=== PATIENT | male | born 1950 | race Caucasian/White ===

== ENCOUNTER 2017-05-10 22:40 | Emergency (ER) | payer BC, MEDICARE ==
[~2017-05-10] VITALS: Ht 180.3 cm; Wt 115.0 kg
[~2017-05-10 22:40] MED LIST: ATOR80TA PO; CLOP75 PO; ECASA PO; ISOS30 PO; METO50TA PO; RAMI2.5C29 PO
[2017-05-10 22:46] VITALS: BP 153/70; PULSE 86; RESP 16; TEMP 99.1; O2SAT 98
[2017-05-10] MEDS ORDERED: diphenhydrAMINE HCL 25 MG CAP PO ONE (23:00)
[2017-05-10] MEDS ORDERED: DEXAMETHASONE SOD PHOS 4 MG/ML VIAL IM ONE (23:00)
[2017-05-10] MEDS ORDERED: ZYRTEC PO (23:04)
[2017-05-10] MEDS ORDERED: PRED20 PO (23:04)
[2017-05-10] MEDS ORDERED: ZANT300T PO (23:04)
--- NOTE | 2017-05-10 23:04 | PD ---
HPI Chief Complaint: Skin Problem Time Seen by Provider: 22:52 Travel History International Travel<30 days: No Contact w/Intl Traveler<30days: No Traveled to known affect area: No History of Present Illness HPI 66-year-old male complains of itching rash on both arms. Patient states that he started having itching rash this evening. Patient ate and drank food and sodas this evening. Patient's not sure of exposure. Patient denies any problem with swallowing. Patient denies any chest pain or shortness of breath. PFSH Past Medical History Blood Disorders: No Anxiety: No Depression: No Heart Rhythm Problems: No Cancer: No Cardiac Catheterization: Yes Cardiovascular Problems: Yes High Cholesterol: Yes Chest Pain: Yes Cerebrovascular Accident: Yes (IN 1996, & 2012) Coronary Artery Disease: Yes Diabetes: No Diminished Hearing: No Endocrine: No GERD: Yes Genitourinary: No Hepatitis: No Hypertension: Yes Immune Disorder: No Implanted Vascular Access Dvce: No Musculoskeletal: Yes (RIGHT ARM SURGERY) Neurologic: Yes Psychiatric: No Reproductive: No Respiratory: No Thyroid Disease: No Tetanus Vaccination: < 5 Years Past Surgical History AICD: No Appendectomy: Yes Arteriovenous Shunt: No Body Medical Devices: states all shrapnel taken out of his body Cardiac Surgery: Yes (4 CARDIAC STENTS) Coronary Stent: Yes ([place] 2 [place] [facility] [place] [facility]) Eye Surgery: Yes (GROWTH REMOVED OVER RT EYE BY DERMATOLOGY) Insulin Pump: No Joint Replacement: No Pacemaker: No Other Surgery: Yes (BACK SURGERY , CARPAL [place] RELEASE, AND RIGHT SHOULDER SURGERY) Social History Alcohol Use: No Tobacco Use: No Substance Use: Yes (MARIJUANA, 12/25/13) Allergies-Medications (Allergen,Severity, Reaction): Coded Allergies: Influenza Virus Vaccines (Unverified Allergy, Severe, Hives, 05/10/17) PT ALSO STATES ALL HIS MUSCLES TIGHTENED UP acetaminophen (Unverified Allergy, Severe, ELEVATES LIVER ENZYMES, 05/10/17) Reported Meds & Prescriptions Reported Meds & Active Scripts Active Review of Systems General / Constitutional: No: Fever Eyes: No: Visual changes HENT: No: Headaches Cardiovascular: No: Chest Pain or Discomfort Respiratory: No: Shortness of Breath Gastrointestinal: No: Abdominal Pain Genitourinary: No: Dysuria Musculoskeletal: No: Pain Skin: Positive Rash, Positive Itching Neurologic: No: Weakness Psychiatric: No: Depression Endocrine: No: Polydipsia Hematologic/Lymphatic: No: Easy Bruising Physical Exam Narrative GENERAL: Well-nourished, well-developed patient. SKIN: Focused skin assessment warm/dry. HEAD: Normocephalic. EYES: No scleral icterus. No injection or drainage. NECK: Supple, trachea midline. No JVD or lymphadenopathy. CARDIOVASCULAR: Regular rate and rhythm without murmurs, gallops, or rubs. RESPIRATORY: Breath sounds equal bilaterally. No accessory muscle use. GASTROINTESTINAL: Abdomen soft, non-tender, nondistended. MUSCULOSKELETAL: No cyanosis, or edema. BACK: Nontender without obvious deformity. No CVA tenderness. Patient has hives over bilateral upper extremity. No pharyngeal edema. No stridor or wheezes. Data Data Last Documented VS Vital Signs Date Time Temp Pulse Resp B/P (MAP) Pulse Ox O2 Delivery O2 Flow Rate FiO2 05/10/17 22:46 99.1 86 16 153/70 (97) 98 Room Air Orders Orders Dexamethasone Inj (Decadron Inj) (05/10/17 23:00) Diphenhydramine (Benadryl) (05/10/17 23:00) MDM Medical Decision Making Medical Screen Exam Complete: Yes Emergency Medical Condition: Yes Differential Diagnosis Differential diagnosis including allergic reaction, contact dermatitis. Narrative Course 66-year-old male with itching rash bilateral arms. Benadryl 25 Mg by mouth. Decadron 8 mg IM. Diagnosis Primary Impression: Allergic reaction Qualified Codes: T78.40XA - Allergy, unspecified, initial encounter Patient Instructions: General Instructions Additional Instructions: Take medications as directed. Follow-up with personal physician. Return if worse. Return immediately if any chest pain shortness of breath. Med/Other Pt SpecificInfo: Prescription(s) given Scripts Ranitidine (Zantac) 300 Mg Tab 300 MG PO DAILY, #10 TAB 0 Refills Prov: Jacques Cox MD 05/10/17 [[facility]] No Conflict Check 10 MG PO DAILY, #10 Prov: Jacques Cox MD 05/10/17 Prednisone (Prednisone) 20 Mg Tab 20 MG PO BID, #10 TAB 0 Refills Prov: Jacques Cox MD 05/10/17 Disposition: 01 DISCHARGE HOME Condition: Stable Jacques Cox MD May 10, 2017 23:04
[2017-05-10] MEDS ORDERED: METO50TA PO (23:11)
[2017-05-10] MEDS ORDERED: ATOR80TA45 PO (23:11)
[2017-05-10] MEDS ORDERED: CLOP75TA PO (23:11)
[2017-05-10] MEDS ORDERED: ASPI-516 CHEW (23:11)
[2017-05-10] MEDS ORDERED: RAMI2.5C PO (23:11)
== END 2017-05-10 23:36 | disposition home or self-care (01) ==
LOC: NEPD 22:40
DX: T78.40XA Allergy, unspecified, initial encounter (principal); L29.9 Pruritus, unspecified; R21 Rash and other nonspecific skin eruption; E78.00 Pure hypercholesterolemia, unspecified; I25.10 Atherosclerotic heart disease of native coronary artery without angina pectoris; K21.9 Gastro-esophageal reflux disease without esophagitis; I10 Essential (primary) hypertension; Z86.73 Personal history of transient ischemic attack (TIA), and cerebral infarction without residual deficits
CPT/HCPCS: 96372; 99283; J1100

== ENCOUNTER 2017-05-26 16:21 | Observation (INO) | payer MEDICARE ==
[~2017-05-26] VITALS: Ht 180.3 cm; Wt 111.0 kg
[~2017-05-26 16:21] MED LIST changes: +ASPI-516 CHEW; -ATOR80TA PO; +ATOR80TA45 PO; -CLOP75 PO; +CLOP75TA PO; -ECASA PO; -ISOS30 PO; +PRED20 PO; +RAMI2.5C PO; -RAMI2.5C29 PO; +ZANT300T PO; +ZYRTEC PO
[2017-05-26 16:22] VITALS: BP 163/92; PULSE 73; RESP 18; TEMP 98.1; O2SAT 99
--- NOTE | 2017-05-26 17:37 | RADRPT ---
EXAM DATE/TIME: 05/26/2017 16:58 [facility] COMPARISON: No previous studies available for comparison. INDICATIONS : Short of breath. MEDICAL HISTORY : None. SURGICAL HISTORY : None. ENCOUNTER: Initial ACUITY: 1 day PAIN SCORE: 0/10 LOCATION: Bilateral chest FINDINGS: PA and lateral views of the chest demonstrate the lungs to be symmetrically aerated without evidence of mass, infiltrate or effusion. No evidence of pneumothorax. The cardiomediastinal contours are un remarkable. Osseous structures are intact. CONCLUSION: The lungs are clear. Luis Ruiz MD on May 26, 2017 at 17:36 Board Certified Radiologist. This report was verified electronically.
[2017-05-26 17:55] LABS: AUTOMATED NEUTROPHIL # 6.9 TH/MM3 (1.8-7.7); BASOPHIL % 0.4 % (0.0-2.0); EOSINOPHIL # 0.1 TH/MM3 (0-0.4); EOSINOPHIL % 1.3 % (0.0-4.0); HEMATOCRIT 41.1 % (39.0-51.0); HEMOGLOBIN 14.4 GM/DL (13.0-17.0); LYMPHOCYTE # 1.9 TH/MM3 (1.0-4.8); MEAN CELL VOLUME 82.3 FL (80.0-100.0); MEAN CORPUSCULAR HEMOGLOBIN 28.8 PG (27.0-34.0); MEAN PLATELET VOLUME 7.9 FL (7.0-11.0); MONO % 6.2 % (0.0-8.0); MONOCYTE # 0.6 TH/MM3 (0-0.9); NEUT % 72.1 % (16.0-70.0); PLATELET COUNT 169 TH/MM3 (150-450); RED BLOOD COUNT 4.99 MIL/MM3 (4.50-5.90); RED CELL DISTRIBUTION WIDTH 15.2 % (11.6-17.2); WHITE BLOOD COUNT 9.6 TH/MM3 (4.0-11.0)
[2017-05-26 18:17] LABS: PROTHROMBIN TIME - PATIENT 10.6 SEC (9.8-11.6)
[2017-05-26 18:25] LABS: BLOOD UREA NITROGEN 19 MG/DL (7-18); CALCIUM 9.1 MG/DL (8.5-10.1); CHLORIDE 106 MEQ/L (98-107); CREATININE 1.32 MG/DL (0.60-1.30); GLOMERULAR FILTRATION RATE 54 ML/MIN (>89); GLUCOSE,RANDOM 101 MG/DL (74-106); SODIUM (NA) 139 MEQ/L (136-145)
[2017-05-26 18:28] LABS: TROPONIN I LESS THAN 0.02 NG/ML (0.02-0.05)
[2017-05-26] MEDS ORDERED: SODIUM CHLORIDE 0.9% FLUSH 10 ML FLUSH IVF PRN (20:30)
[2017-05-26] MEDS ORDERED: NITROGLYCERIN 0.4 MG SL 25 TABS/BTL SL ONE (20:30)
[2017-05-26] MEDS ORDERED: SODIUM CHLORID 0.9% 500 ML INJ 500 ML IV ONE (20:30)
--- NOTE | 2017-05-26 20:35 | PD ---
HPI Chief Complaint: Chest Pain Time Seen by Provider: 20:10 Travel History International Travel<30 days: No Contact w/Intl Traveler<30days: No Traveled to known affect area: No History of Present Illness HPI 66-year-old male with a history of cardiac stents (), CVA(1996), diabetes mellitus presents emergency department complaining of chest pain since approximately 1 PM today. States that [place] the [place]. Patient describes it as tight and pressure. About 330p, his pain increased and the pressure spread across his chest. States that the pressure felt like somebody was sitting on him. No palliative or provocative factors. Initially, pain was 9/10 and is decreased to 1/10 with 1 SL nitro. States he had associated shortness of breath. Patient did take an aspirin this morning. Patient states that his chest pain may be from stress as his fianc did pass 3 months ago[address] Patient follows Dr. Juarez for cardiology with last follow up in . States he has an echo 2015 or . He does not know the results of this. PFSH Past Medical History Blood Disorders: No Anxiety: No Depression: No Heart Rhythm Problems: No Cancer: No Cardiac Catheterization: Yes Cardiovascular Problems: Yes High Cholesterol: Yes Chest Pain: Yes Cerebrovascular Accident: Yes (IN 1996, & 2012) Coronary Artery Disease: Yes Diabetes: No Diminished Hearing: No Endocrine: No GERD: Yes Genitourinary: No Hepatitis: No Hypertension: Yes Immune Disorder: No Implanted Vascular Access Dvce: No Musculoskeletal: Yes (RIGHT ARM SURGERY) Neurologic: Yes Psychiatric: No Reproductive: No Respiratory: No Thyroid Disease: No Past Surgical History AICD: No Appendectomy: Yes Arteriovenous Shunt: No Body Medical Devices: states all shrapnel taken out of his body Cardiac Surgery: Yes (4 CARDIAC STENTS) [place]: [place] [facility] [place] [facility]) Eye Surgery: Yes (GROWTH REMOVED OVER RT EYE BY DERMATOLOGY) Insulin Pump: No Joint Replacement: No Pacemaker: No Other Surgery: Yes (BACK SURGERY , CARPAL [place] RELEASE, AND RIGHT SHOULDER SURGERY) Social History Alcohol Use: No Tobacco Use: No Substance Use: Yes (MARIJUANA, 12/25/13) Allergies-Medications (Allergen,Severity, Reaction): Coded Allergies: Influenza Virus Vaccines (Unverified Allergy, Severe, Hives, 05/10/17) PT ALSO STATES ALL HIS MUSCLES TIGHTENED UP acetaminophen (Unverified Allergy, Severe, ELEVATES LIVER ENZYMES, 05/10/17) Reported Meds & Prescriptions Reported Meds & Active Scripts Active Reported Clopidogrel (Clopidogrel Bisulfate) 75 Mg Tab 75 Mg PO DAILY Ramipril 2.5 Mg Cap 2.5 Mg PO DAILY Metoprolol Tartrate 50 Mg Tab 50 Mg PO BID Atorvastatin (Atorvastatin Calcium) 80 Mg Tab 80 Mg PO HS Aspirin 81 Mg Chew 81 Mg CHEW DAILY Review of Systems Except as stated in HPI: all other systems reviewed are Neg Physical Exam Narrative GENERAL: Well-developed, well-nourished in no apparent distress SKIN: Focused skin assessment warm/dry. HEAD: Atraumatic. Normocephalic. EYES: Pupils equal and round. No scleral icterus. No injection or drainage. ENT: No nasal bleeding or discharge. Mucous membranes pink and moist. NECK: Trachea midline. No JVD. No lymphadenopathy CARDIOVASCULAR: Regular rate and rhythm. No murmur appreciated. RESPIRATORY: No accessory muscle use. Clear to auscultation. Breath sounds equal bilaterally. GASTROINTESTINAL: Abdomen soft, non-tender, nondistended. Hepatic and splenic margins not palpable. MUSCULOSKELETAL: No obvious deformities. No clubbing. No cyanosis. No edema. NEUROLOGICAL: Awake and alert. No obvious cranial nerve deficits. Motor grossly within normal limits. Normal speech. PSYCHIATRIC: Appropriate mood and affect; insight and judgment normal. Data Data Last Documented VS Vital Signs Date Time Temp Pulse Resp B/P (MAP) Pulse Ox O2 Delivery O2 Flow Rate FiO2 05/26/17 16:22 98.1 73 18 163/92 (115) 99 Room Air Orders Orders Electrocardiogram (05/26/17 16:36) Basic Metabolic Panel (Bmp) (05/26/17 16:36) Ckmb (Isoenzyme) Profile (05/26/17 16:36) Complete Blood Count With Diff (05/26/17 16:36) Magnesium (Mg) (05/26/17 16:36) Prothrombin Time / Inr (Pt) (05/26/17 16:36) Act Partial Throm Time (Ptt) (05/26/17 16:36) Troponin I (05/26/17 16:36) Chest, Pa & Lat (05/26/17 16:36) Sodium Chloride 0.9% Flush (Ns Flush) (05/26/17 20:30) Nitroglycerin Sl (Nitrostat Sl) (05/26/17 20:30) Sodium Chlorid 0.9% 500 Ml Inj (Ns 500 M (05/26/17 20:30) Activity Bed Rest With Brp (05/26/17 20:35) Vital Signs (Adult) Q4H (05/26/17 20:35) Cardiac Rhythm .As Directed (05/26/17 20:35) Notify Dr: Other .PRN (05/26/17 20:35) Notify DrSanjay Parameters (05/26/17 20:35) Resp Oxygen Nasal Cannula (05/26/17 ) Diet Heart Healthy (05/27/17 Breakfast) Ckmb (Isoenzyme) Profile (05/26/17 20:35) Ckmb (Isoenzyme) Profile (05/26/17 23:35) Troponin I (05/26/17 20:35) Troponin I (05/26/17 23:35) Electrocardiogram (05/26/17 20:35) Electrocardiogram (05/26/17 23:35) ^ Obtain (05/26/17 20:35) Case Management Social Worker / Telemetry [id number].[id number] (05/26/17 20:35) Diet Heart Healthy (05/26/17 Dinner) Admit Order (Ed Use Only) (05/26/17 21:00) Labs Laboratory Tests Test 05/26/17 16:53 05/26/17 20:40 White Blood Count 9.6 TH/MM3 Red Blood Count 4.99 MIL/MM3 Hemoglobin 14.4 GM/DL Hematocrit 41.1 % Mean Corpuscular Volume 82.3 FL Mean Corpuscular Hemoglobin 28.8 PG Mean Corpuscular Hemoglobin Concent 35.0 % Red Cell Distribution Width 15.2 % Platelet Count 169 TH/MM3 Mean Platelet Volume 7.9 FL Neutrophils (%) (Auto) 72.1 % Lymphocytes (%) (Auto) 20.0 % Monocytes (%) (Auto) 6.2 % Eosinophils (%) (Auto) 1.3 % Basophils (%) (Auto) 0.4 % Neutrophils # (Auto) 6.9 TH/MM3 Lymphocytes # (Auto) 1.9 TH/MM3 Monocytes # (Auto) 0.6 TH/MM3 Eosinophils # (Auto) 0.1 TH/MM3 Basophils # (Auto) 0.0 TH/MM3 CBC Comment DIFF FINAL Differential Comment Prothrombin Time 10.6 SEC Prothromb Time International Ratio 1.0 RATIO Activated Partial Thromboplast Time 24.5 SEC Blood Urea Nitrogen 19 MG/DL Creatinine 1.32 MG/DL Random Glucose 101 MG/DL Calcium Level 9.1 MG/DL Magnesium Level 2.0 MG/DL Sodium Level 139 MEQ/L Potassium Level 3.9 MEQ/L Chloride Level 106 MEQ/L Carbon Dioxide Level 28.0 MEQ/L Anion Gap 5 MEQ/L Estimat Glomerular Filtration Rate 54 ML/MIN Total Creatine Kinase 64 U/L 63 U/L Troponin I LESS THAN 0.02 NG/ML LESS THAN 0.02 NG/ML MDM Medical Decision Making Medical Screen Exam Complete: Yes Emergency Medical Condition: Yes Differential Diagnosis Unstable angina, NSTEMI, STEMI Narrative Course 66-year-old male with a history of cardiac stents (), CVA(1996), diabetes mellitus presents emergency department complaining of chest pain since approximately 1 PM today. States that [place] the pain started. Patient describes it as tight and pressure. About 330p, his pain increased and the pressure spread across his chest. States that the pressure felt like somebody was sitting on him. No palliative or provocative factors. Initially, pain was 9/10 and is decreased to 1/10 with 1 SL nitro. States he had associated shortness of breath. Patient to take an aspirin this morning. Patient states that his chest pain may be from stress as his fianc did past 3 months ago[address] Patient follows Dr. Juarez for cardiology with last follow up in . States he has an echo 2015 or 17. He does not know the results of this. Vital signs stable. Laboratory Tests Test 05/26/17 16:53 05/26/17 20:40 White Blood Count 9.6 TH/MM3 Red Blood Count 4.99 MIL/MM3 Hemoglobin 14.4 GM/DL Hematocrit 41.1 % Mean Corpuscular Volume 82.3 FL Mean Corpuscular Hemoglobin 28.8 PG Mean Corpuscular Hemoglobin Concent 35.0 % Red Cell Distribution Width 15.2 % Platelet Count 169 TH/MM3 Mean Platelet Volume 7.9 FL Neutrophils (%) (Auto) 72.1 % Lymphocytes (%) (Auto) 20.0 % Monocytes (%) (Auto) 6.2 % Eosinophils (%) (Auto) 1.3 % Basophils (%) (Auto) 0.4 % Neutrophils # (Auto) 6.9 TH/MM3 Lymphocytes # (Auto) 1.9 TH/MM3 Monocytes # (Auto) 0.6 TH/MM3 Eosinophils # (Auto) 0.1 TH/MM3 Basophils # (Auto) 0.0 TH/MM3 CBC Comment DIFF FINAL Differential Comment Prothrombin Time 10.6 SEC Prothromb Time International Ratio 1.0 RATIO Activated Partial Thromboplast Time 24.5 SEC Blood Urea Nitrogen 19 MG/DL Creatinine 1.32 MG/DL Random Glucose 101 MG/DL Calcium Level 9.1 MG/DL Magnesium Level 2.0 MG/DL Sodium Level 139 MEQ/L Potassium Level 3.9 MEQ/L Chloride Level 106 MEQ/L Carbon Dioxide Level 28.0 MEQ/L Anion Gap 5 MEQ/L Estimat Glomerular Filtration Rate 54 ML/MIN Cardiac enzymes negative. Last Impressions Chest X-Ray 05/26/17 1636 Signed Impressions: Service Date/Time: Friday, May 26, 2017 16:58 - CONCLUSION: The lungs are clear. Luis Ruiz MD He took an ASA today along with his Plavix today. Nitro 0.4mg SL administered as he continues to have 1/10 pain. Pt will be admitted to the [facility] for unstable angina. Diagnosis Primary Impression: Unstable angina Admitting Information Admitting Physician Requests: Observation Condition: Stable Mandi Fitzgerald May 26, 2017 20:35
[2017-05-26 21:39] LABS: TROPONIN I LESS THAN 0.02 NG/ML (0.02-0.05)
[2017-05-27] VITALS (7 sets, daily range): BP systolic 117–143; BP diastolic 69–78; PULSE 55–69; RESP 18–20; TEMP 97.9–98.5; O2SAT 95–98
[2017-05-27 00:51] LABS: TROPONIN I LESS THAN 0.02 NG/ML (0.02-0.05)
--- NOTE | 2017-05-27 08:01 | EKG ---
Date Performed: 05/26/2017 Time Performed: 20:00:51 PTAGE: 66 years EKG: SINUS BRADYCARDIA NONSPECIFIC T-WAVE ABNORMALITY BORDERLINE ECG PREVIOUS TRACING : 05/26/2017 16.47 DOCTOR: Tl Cuevas Interpretating Date/Time 05/27/2017 07:58:55
[2017-05-27] MEDS ORDERED: CLOPIDOGREL 75 MG TAB PO SCH (09:30)
[2017-05-27] MEDS ORDERED: RAMIPRIL 2.5 MG CAP PO SCH (09:30)
[2017-05-27] MEDS ORDERED: METOPROLOL TARTRATE 50 MG TAB PO SCH (09:30)
[2017-05-27] MEDS ORDERED: REGADENOSON INJ 0.4 MG/5 ML SYR ONE (10:17)
--- NOTE | 2017-05-27 11:30 | RADRPT ---
EXAM DATE/TIME: 05/27/2017 09:51 [facility] COMPARISON: No previous studies available for comparison. INDICATIONS : Substernal chest pain with dyspnea. Angina. DOSE: 35 mCi Tc99m Myoview at stress. 11 mCi Tc99m Myoview at rest. 0.4 mg Lexiscan STRESS SYMPTOMS: Dyspnea. EJECTION FRACTION: 59% MEDICAL HISTORY : Hypercholesterolemia. Gastroesophageal reflux disease. Diabetes mellitus type 2. Hypertension. SURGICAL HISTORY : Coronary artery stent. Appendectomy. ENCOUNTER: Initial ACUITY: 1 day PAIN SCALE: 9/10 LOCATION: Substernal chest TECHNIQUE: The patient underwent pharmacologic stress with infusion of prescribed dose. Continuous ECG tracing was monitored during stress. Gated SPECT imaging was performed after stress and conventional SPECT i maging was performed at rest. The examination was performed on a SPECT/CT scanner, both attenuation and non-corrected datasets were reviewed. FINDINGS: DISTRIBUTION: The maximum perfused segment at stress is in the septal wall. PERFUSION STUDY: The pattern of perfusion at stress is within normal limits, with regional variations in perfusion wit hin 30%. No evidence of redistribution. Summed stress score is zero.. GATED STUDY: There is intact wall motion and thickening without hypokinetic or dyskinetic segments. CONCLUSION: 1. No evidence of stress-induced ischemia. 2. Intact wall motion 59% ejection fraction. RISK CATEGORY: Low (<1% Annual Mortality Rate) Luis Ruiz MD on May 27, 2017 at 11:27 Board Certified Radiologist. This report was verified electronically.
[2017-05-27] MEDS ORDERED: METF1000 PO (11:56)
--- NOTE | 2017-05-27 11:56 | HHI.HP ---
[facility] Primary Care Physician Ghulam Koch MD Chief Complaint Chest pain History of Present Illness This is a 66-year-old male with history of CAD with history of 4 stents that presents to ED with a complaint of developing the discomfort in the center of his chest that radiated outward on both sides with shortness of breath. This began around 1:00 yesterday afternoon. By 330 was still present. He decided to go to the ED. He took an aspirin. He took a subungual nitroglycerin while waiting in the ED waiting area and states that the discomfort and resolved within 5 minutes. He had no nausea or diaphoresis. States it does not feel similar to when eating stents in the past. Follows Dr. Juarez. Cannot recall recent stress testing. Denies recent illness. Denies fevers or chills. States he has been taking his medication as prescribed. Review of Systems .General: Patient denies fevers, chills, and recent travel HEENT: Patient denies headache, sore throat, difficulty swallowing. Cardiovascular: Has the chest discomfort as mentioned above. Denies sensation of heart beating rapidly or irregularly. No syncope. Denies diaphoresis. Respiratory: He was short of breath. Denies inspirational chest discomfort. Denies coughing wheezing or hemoptysis. GI: Patient denies nausea, vomiting, diarrhea, abdominal pain, bloody stools. Musculoskeletal: Patient denies joint pain or edema. Denies calf pain or edema. Neurovascular: Patient denies numbness, tingling, weakness in extremities. Denies headache. Endocrine: Denies polyuria and polydipsia. Hematologic: Denies easy bruising. Skin: Denies rash or itching. Past Family Social History Allergies: Coded Allergies: Influenza Virus Vaccines (Unverified Allergy, Severe, Hives, 05/10/17) PT ALSO STATES ALL HIS MUSCLES TIGHTENED UP acetaminophen (Unverified Allergy, Severe, ELEVATES LIVER ENZYMES, 05/10/17) Past Medical History CAD with history of stents. Hypertension, hyperlipidemia, diabetes, prior CVA. Past Surgical History Heart catheterizations with stenting. Appendectomy, back surgery, carpal tunnel release, right shoulder. Reported Medications Reported Meds & Active Scripts Active Reported Clopidogrel (Clopidogrel Bisulfate) 75 Mg Tab 75 Mg PO DAILY Ramipril 2.5 Mg Cap 2.5 Mg PO DAILY Metoprolol Tartrate 50 Mg Tab 50 Mg PO BID Atorvastatin (Atorvastatin Calcium) 80 Mg Tab 80 Mg PO HS Aspirin 81 Mg Chew 81 Mg CHEW DAILY Active Ordered Medications Current Medications Medications (Trade) Dose Ordered Sig/Shanae Route Start Time Stop Time Status Last Admin (NS Flush) 2 ml UNSCH PRN IVF 05/26/17 20:30 (Lipitor) 80 mg HS PO 05/27/17 21:00 (Plavix) 75 mg DAILY PO 05/27/17 09:30 05/27/17 11:24 (Lopressor) 50 mg BID PO 05/27/17 09:30 05/27/17 11:24 (Altace) 2.5 mg DAILY PO 05/27/17 09:30 05/27/17 11:23 Family History There is family history of CAD. Social History Patient does not smoke, drink alcohol, or use illicit drugs. Physical Exam Vital Signs Vital Signs Date Time Temp Pulse Resp B/P (MAP) Pulse Ox O2 Delivery O2 Flow Rate FiO2 05/27/17 08:41 98.2 60 18 138/78 (98) 96 05/27/17 07:30 55 05/27/17 04:21 97.9 56 18 117/69 (85) 95 05/27/17 03:27 69 05/27/17 00:40 56 05/27/17 00:00 98.5 59 20 143/69 (93) 97 05/26/17 21:53 05/26/17 16:22 98.1 73 18 163/92 (115) 99 Room Air Physical Exam GENERAL: This is a well-nourished, well-developed patient, in no apparent distress. Patient speaks in clear complete sentences. Patient is pleasant. HEENT: Head is atraumatic and normocephalic. Neck is supple without lymphadenopathy and trachea is midline. No JVD or carotid bruits. CARDIOVASCULAR: Regular rate and rhythm without murmurs, gallops, or rubs. RESPIRATORY: Clear to auscultation. Breath sounds equal bilaterally. No wheezes , rales, or rhonchi. Chest wall is nontender. No use of accessory muscles. GASTROINTESTINAL: Abdomen is nontender, nondistended. Abdomen soft. No obvious pulsatile mass or bruit. No CVA tenderness. Strong femoral pulses bilaterally. Normal bowel sounds in all quadrants. MUSCULOSKELETAL: Patient is moving upper and lower extremities freely. No calf tenderness or edema, no Homans sign. Strong pulses in upper and lower extremities. NEUROLOGICAL: Patient is alert and oriented. Cranial nerves 2-12 are grossly intact. No focal deficits and speech is clear. SKIN: No rash and turgor is normal. Laboratory Laboratory Tests Test 05/26/17 16:53 05/26/17 20:40 05/26/17 23:50 White Blood Count 9.6 Red Blood Count 4.99 Hemoglobin 14.4 Hematocrit 41.1 Mean Corpuscular Volume 82.3 Mean Corpuscular Hemoglobin 28.8 Mean Corpuscular Hemoglobin Concent 35.0 Red Cell Distribution Width 15.2 Platelet Count 169 Mean Platelet Volume 7.9 Neutrophils (%) (Auto) 72.1 Lymphocytes (%) (Auto) 20.0 Monocytes (%) (Auto) 6.2 Eosinophils (%) (Auto) 1.3 Basophils (%) (Auto) 0.4 Neutrophils # (Auto) 6.9 Lymphocytes # (Auto) 1.9 Monocytes # (Auto) 0.6 Eosinophils # (Auto) 0.1 Basophils # (Auto) 0.0 CBC Comment DIFF FINAL Differential Comment Prothrombin Time 10.6 Prothromb Time International Ratio 1.0 Activated Partial Thromboplast Time 24.5 Blood Urea Nitrogen 19 Creatinine 1.32 Random Glucose 101 Calcium Level 9.1 Magnesium Level 2.0 Sodium Level 139 Potassium Level 3.9 Chloride Level 106 Carbon Dioxide Level 28.0 Anion Gap 5 Estimat Glomerular Filtration Rate 54 Total Creatine Kinase 64 63 57 Troponin I LESS THAN 0.02 LESS THAN 0.02 LESS THAN 0.02 Result Diagram: 05/26/17 1653 05/26/17 1653 Imaging Last 48 hours Impressions Myocardial Perfusion Scan Nuc Med 05/27/17 0000 Signed Impressions: Service Date/Time: Saturday, May 27, 2017 09:51 - CONCLUSION: 1. No evidence of stress-induced ischemia. 2. Intact wall motion 59%% ejection fraction. RISK CATEGORY: Low (<1%% Annual Mortality Rate) Luis Ruiz MD Chest X-Ray 05/26/17 1636 Signed Impressions: Service Date/Time: Friday, May 26, 2017 16:58 - CONCLUSION: The lungs are clear. Luis Ruiz MD Course EKGs have been sinus bradycardia rate 54, 55, and [address] segment depression elevations. There are nonspecific T-wave changes. Caprini VTE Risk Assessment Caprini VTE Risk Assessment: Mod/High Risk (score >= 2) Caprini Risk Assessment Model Point Value = 1 Point Value = 2 Point Value = 3 Point Value = 5 Age 41-60 Minor surgery BMI > 25 kg/m2 Swollen legs Varicose veins or History of unexplained or recurrent spontaneous Oral contraceptives or hormone replacement Sepsis (< 1 month) Serious lung disease, including pneumonia (< 1 month) Abnormal pulmonary function Acute myocardial infarction Congestive heart failure (< 1 month) History of inflammatory bowel disease Medical patient at bed rest Age 61-74 Arthroscopic surgery Major open surgery (> 45 min) Laparoscopic surgery (> 45 min) Malignancy Confined to bed (> 72 hours) Immobilizing plaster cast Central venous access Age >= 75 History of VTE Family history of VTE Factor V Leiden Prothrombin [id number] Lupus anticoagulant Anticardiolipin antibodies Elevated serum homocysteine Heparin-induced thrombocytopenia Other congenital or acquired thrombophilia Stroke (< 1 month) Elective arthroplasty Hip, pelvis, or leg fracture Acute spinal cord injury (< 1 month) Prophylaxis Regimen Total Risk Factor Score Risk Level Prophylaxis Regimen 0-1 Low Early ambulation 2 Moderate Order ONE of the following: *Sequential Compression Device (SCD) *Heparin 5000 units SQ BID 3-4 Higher Order ONE of the following medications: *Heparin 5000 units SQ TID *Enoxaparin/Lovenox 40 mg SQ daily (WT < 150 kg, CrCl > 30 mL/min) *Enoxaparin/Lovenox 30 mg SQ daily (WT < 150 kg, CrCl > 10-29 mL/min) *Enoxaparin/Lovenox 30 mg SQ BID (WT < 150 kg, CrCl > 30 mL/min) AND/OR *Sequential Compression Device (SCD) 5 or more Highest Order ONE of the following medications: *Heparin 5000 units SQ TID (Preferred with Epidurals) *Enoxaparin/Lovenox 40 mg SQ daily (WT < 150 kg, CrCl > 30 mL/min) *Enoxaparin/Lovenox 30 mg SQ daily (WT < 150 kg, CrCl > 10-29 mL/min) *Enoxaparin/Lovenox 30 mg SQ BID (WT < 150 kg, CrCl > 30 mL/min) AND *Sequential Compression Device (SCD) Assessment and Plan Assessment and Plan * Chest pain: Patient had serial cardiac enzymes and EKGs for ruling out purposes. He was seen by Dr. Oumar Oliveira of cardiology in the chest pain center. 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 I attempted to speak with Dr. Juarez, he was out of the office. The office made the patient appointment for June 05, 2017 at 11 AM. Return to ED for interval issues. * CAD: We will reassess the stress testing. 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 * Hypertension: Continue current medication. * Hyperlipidemia: Continue current medication. * Diabetes: Follow diabetic diet. He will be on sliding scale insulin coverage while in chest pain center. Resume education and discharge. * History of CVA: Continue medications. Patient is stable this time. He is agreeable to this plan. Tanner Carranza May 27, 2017 11:56
--- NOTE | 2017-05-27 12:05 | HHI.DCPOC ---
Discharge Care Plan Diagnosis: (1) Chest pain (2) Coronary artery disease (3) History of coronary artery stent placement (4) DM (diabetes mellitus) (5) Hypertension (6) Hyperlipidemia (7) History of CVA (cerebrovascular accident) Goals to Promote Your Health * To prevent worsening of your condition and complications * To maintain your health at the optimal level Directions to Meet Your Goals Take your medications as prescribed Follow your dietary instruction Follow activity as directed Keep your appointments as scheduled Take your immunizations and boosters as scheduled If your symptoms worsen call your PCP, if no PCP go to Urgent Care Center or Emergency Room Smoking is Dangerous to Your Health. Avoid second hand smoke Call the 24-hour hour crisis hotline for domestic abuse at Tanner Carranza May 27, 2017 12:05
--- NOTE | 2017-05-27 15:35 | EKG ---
Date Performed: 05/26/2017 Time Performed: 16:47:08 PTAGE: 66 years EKG: SINUS BRADYCARDIA NONSPECIFIC T-WAVE ABNORMALITY BORDERLINE ECG PREVIOUS TRACING : 12/26/2013 19.04 DOCTOR: Tl Cuevas Interpretating Date/Time 05/27/2017 15:34:45
--- NOTE | 2017-05-27 15:55 | EKG ---
Date Performed: 05/27/2017 Time Performed: 00:25:42 PTAGE: 66 years EKG: SINUS BRADYCARDIA BORDERLINE ECG PREVIOUS TRACING : 05/26/2017 20.00 Since previous tracing, no significant change noted DOCTOR: Oumar Oliveira Interpretating Date/Time 05/27/2017 15:53:16
--- NOTE | 2017-05-27 15:57 | TR ---
Date Performed: 05/27/2017 Time Performed: 10:19:20 DOCTOR: Oumar Oliveira DRUG LIST: CLINICAL HISTORY: CHEST PAIN REASON FOR TEST: CHEST PAIN REASON FOR ENDING: OBSERVATION: CONCLUSION: Lexiscan stress test was performed under standard four minute protocol. Radionuclid e was injected one minute prior to ending the test. No electrocardiographic abormalities were present to suggest ischemia. Nuclear imaging and interpretation are pending. COMMENTS:
[2017-05-27] MEDS ORDERED: ATORVASTATIN 80 MG TAB PO SCH (21:00)
== END 2017-05-27 15:23 | disposition home or self-care (01) ==
LOC: NEPC 16:21 → NEDA 21:02 → NEPFCDU 21:52
PROVIDERS: ADMIT Internal Medicine Interventional Cardiology; ATTEND Internal Medicine Interventional Cardiology
DX: R07.89 Other chest pain (principal); R00.1 Bradycardia, unspecified; I25.110 Atherosclerotic heart disease of native coronary artery with unstable angina pectoris; I10 Essential (primary) hypertension; E78.00 Pure hypercholesterolemia, unspecified; K21.9 Gastro-esophageal reflux disease without esophagitis; E11.9 Type 2 diabetes mellitus without complications; Z86.73 Personal history of transient ischemic attack (TIA), and cerebral infarction without residual deficits; Z95.5 Presence of coronary angioplasty implant and graft; Z79.899 Other long term (current) drug therapy; Z79.82 Long term (current) use of aspirin
CPT/HCPCS: 71046; 78452; 80048; 82550; 82948; 83735; 84484; 85025; 85610; 85730; 93005; 93017; 96360; 99285; A9502; G0378; J2785; J7040